=== PATIENT | female | born 1965 | race African-American/Black ===

== ENCOUNTER → 2016-07-08 | Day surgery (SDC) | payer BC ==
[~2016-07-08] MED LIST: ASPIRIN325 M1 PO; FLEXERIL PO; MEDROL PO; NO MEDICATIONS; PERCOCET5/325 PO
--- NOTE | ~2016-07-08 | OR ---
Unit #: [id number] #: [id number] Patient: THEODORE HOLLEY [id number] [address] [place], [place] [address] [id number] MR#: [id number] NAME: THEODORE HOLLEY ROOM: Date of Procedure: 07/08/2016 Admission Date: 07/08/2016 Surgeon: Luis Rivera M.D. : 1965 Attending Physician: Luis Rivera M.D. Primary Care Physician: Luis Miguel Merritt M.D. OPERATIVE REPORT PRIMARY CARE PHYSICIAN Luis Miguel Merritt M.D. PREOPERATIVE DIAGNOSES The patient came for surveillance colonoscopy. She has history of removal of multiple colonic adenomas at three year intervals. First time, she had 14 polyps, second time more than 10 polyps, and last time were 8 polyps. She now came for repeat surveillance colonoscopy. PROCEDURES PERFORMED Colonoscopy and polypectomy. POSTOPERATIVE DIAGNOSES 1. The patient had more than 10 polyps. These were present one in the rectum, one in sigmoid colon. The sigmoid colon polyp was pedunculated polyp about 1.5 cm. Then, there were at least 4 to 5 polyps in the transverse colon and 4 to 5 polyps in the descending colon. All the polyps were removed using snare polypectomy. The few of the diminutive ones were also fulgurated using the cautery tip. 2. Sigmoid and descending colon diverticulosis. 3. Rest of the examination up to cecum and terminal ileum was normal. RECOMMENDATIONS Follow up the results of polyp histology and consider repeat examination in 3 years. SEDATION USED MAC. DESCRIPTION OF PROCEDURE Following detailed explanation of potential risks and complications of a colonoscopy, namely perforation, bleeding, and complication related to sedation, the patient was brought to GI lab and laid in the left lateral decubitus position. A digital rectal examination was performed, which was normal. Lubricated tip of the Olympus video colonoscope was inserted through the anus and advanced under direct vision. The scope was advanced past rectosigmoid into descending colon. Multiple small diverticula were seen in this area. The scope tip was then navigated all the way up to cecum with visualization of the ileocecal valve and the appendiceal orifice. Preparation was excellent with good visualization and photodocumentation was obtained. Last few inches of the terminal ileum were also visualized after intubation of the ileocecal valve and appeared Unit #: [id number] #: [id number] Patient: THEODORE HOLLEY. Multiple polyps were seen both during antegrade examination and some during the withdrawal phase of the examination. A total of more than 12 polyps were removed from the colon. The largest of these was a pedunculated polyp in the sigmoid colon. There were polyps ranged in size from 3 mm to 1.5 cm. There were a total of at least 5 polyps in the transverse colon, 4 to 5 in the descending colon, which were removed using snare polypectomy, as well as ablated using snare cautery tip fulguration. The pedunculated polyp in the sigmoid was then retained and removed using snare cautery polypectomy. It was about 1.5 to 2 cm in size. The patient also had a single polyp in the rectum, which was also removed using snare polypectomy. Other than the left-sided diverticula, no other abnormalities were noted. The scope was then withdrawn and the patient returned to recovery area. She tolerated the procedure without any postprocedure complications. Dictated by... Anca Sanchez/khris TD: 07/09/2016 06:37 JOB #: [id number] OPERATIVE REPORT Page 1 of 1 X Luis Rivera MD X PROCEDURE OPERATIVE NOTE
== END | disposition home or self-care (01) ==
LOC: COPS 12:38
DX: Z12.11 Encounter for screening for malignant neoplasm of colon (principal); D12.3 Benign neoplasm of transverse colon; D12.4 Benign neoplasm of descending colon; D12.5 Benign neoplasm of sigmoid colon; D12.8 Benign neoplasm of rectum; F17.210 Nicotine dependence, cigarettes, uncomplicated; K57.30 Diverticulosis of large intestine without perforation or abscess without bleeding; M19.90 Unspecified osteoarthritis, unspecified site; Z90.710 Acquired absence of both cervix and uterus
CPT/HCPCS: 88305; J2250